=== PATIENT | male | born 1960 | race Caucasian/White ===

== ENCOUNTER 2020-10-25 07:16 | Emergency (ER) | payer OTHER ==
[~2020-10-25] VITALS: Ht 180.3 cm; Wt 72.6 kg
[2020-10-25 07:56] LABS: Eosinophils # (auto) 0.1 10 ^3/uL (0-0.8); Nucleated Red Blood Cells % 0.1 %
[2020-10-25 07:57] LABS: Basophils # (auto) 0.1 10 ^3/uL (0-0.2); Eosinophils % (auto) 0.8 % (0.0-7.0); Hematocrit 49.9 % (41.0-53.0); Hemoglobin 17.2 g/dL (13.5-17.5); Lymphocytes # (auto) 1.4 10 ^3/uL (0.4-5.4); Lymphocytes % (auto) 20.3 % (10.0-50.0); Mean Corpuscular Hemoglobin 34.8 pg (28.0-32.0); Mean Corpuscular Hgb Conc. 34.4 g/dL (32.0-36.0); Mean Corpuscular Volume 100.9 fL (80.0-100.0); Monocytes # (auto) 0.5 10 ^3/uL (0-1.3); Monocytes % (auto) 8.2 % (0.0-12.0); Neutrophils # (auto) 4.7 10 ^3/uL (1.6-8.6); Neutrophils % (auto) 69.7 % (37.0-80.0); Red Blood Cells 4.94 10^6/uL (4.5-5.90); Red Cell Distribution Width 13.2 % (11.8-14.3); White Blood Cell 6.7 10^3/uL (4.4-10.8)
[2020-10-25 08:12] LABS: Alanine Aminotransferase 37 U/L (16-61); Albumin 3.7 g/dL (3.4-5.0); Anion Gap 7 (5-15); Aspartate Aminotransferase 21 U/L (15-37); BUN/Creatinine Ratio 11.6; Blood Urea Nitrogen 10 mg/dL (7-18); Calcium 8.6 mg/dL (8.5-10.1); Carbon Dioxide 23 mmol/L (21-32); Chloride 110 mmol/L (98-107); GFR African American 117 mL/min; GFR Non-African American 96 mL/min; Glucose 99 mg/dL (74-106); Potassium 4.1 mmol/L (3.5-5.1); Sodium 140 mmol/L (136-145)
[2020-10-25 08:16] LABS: Alkaline Phosphatase 88 U/L (45-117); Bilirubin, Total 1.1 mg/dL (0.2-1.0); Total Protein 7.8 g/dL (6.4-8.2)
[2020-10-25] MEDS ORDERED: KETOROLAC TROMETH 60MG/2ML VIAL IM ONE (09:15)
[2020-10-25] MEDS ORDERED: KETOROLAC TROMETH 30 MG/ML 1ML VIAL IV ONE (12:00)
[2020-10-25] MEDS ORDERED: MORPHINE SULFATE INJECTION 2 MG/ML SYRG IV ONE (12:30)
[2020-10-25] MEDS ORDERED: ONDANSETRON HCL 4 MG/2 ML VIAL IV ONE (12:30)
[2020-10-25] MEDS ORDERED: IOHEXOL 350 MG/ML 100ML IJ ONE (15:24)
[2020-10-25] MEDS ORDERED: LORazepam 2MG/ML-1ML VIAL IV ONE (15:45)
[2020-10-25 16:23] VITALS: BP 154/99
== END 2020-10-25 16:24 | disposition home or self-care (01) ==
LOC: ER 07:16
DX: S22.32XA Fracture of one rib, left side, initial encounter for closed fracture (principal); R07.89 Other chest pain; I10 Essential (primary) hypertension; F17.210 Nicotine dependence, cigarettes, uncomplicated; Z20.822 Contact with and (suspected) exposure to COVID-19; X58.XXXA Exposure to other specified factors, initial encounter; Y93.89 Activity, other specified; Y92.89 Other specified places as the place of occurrence of the external cause; Y99.8 Other external cause status
CPT/HCPCS: 36415; 71046; 71275; 80053; 84484; 85025; 85379; 87426; 93005; 96372; 96374; 96375; 99285; J1885; J2060; J2270; J2405; Q9967

== ENCOUNTER 2021-03-29 18:42 | Emergency (ER) | payer SELFPAY ==
[~2021-03-29] VITALS: Ht 180.3 cm; Wt 120.2 kg
[2021-03-29 18:56] VITALS: BP 115/85
== END 2021-03-29 21:27 | disposition left against medical advice (07) ==
LOC: ER 18:43
DX: M54.59 Other low back pain (principal); V43.92XA Unspecified car occupant injured in collision with other type car in traffic accident, initial encounter; Y93.89 Activity, other specified; Y92.410 Unspecified street and highway as the place of occurrence of the external cause; Y99.8 Other external cause status
CPT/HCPCS: 72100